=== PATIENT | male | born 1985 | race Caucasian/White ===

== ENCOUNTER 2016-08-27 03:21 | Emergency (ER) | payer SELFPAY ==
[~2016-08-27] VITALS: Ht 190.5 cm; Wt 109.2 kg
[2016-08-27 03:27] VITALS: TEMP 36.5; Ht 190.5 cm; Wt 109.2 kg
[2016-08-27] MEDS ORDERED: KETOROLAC TROMETHAMINE 30 MG/ML VIAL IV STA (03:36)
[2016-08-27] MEDS ORDERED: ONDANSETRON INJ 2 MG/ML 2 ML VIAL IV STA (03:36)
[2016-08-27] MEDS ORDERED: MoRPHine SULFATE 4 MG/ML 1 ML CARP\\VIAL IV ONE ×2 (03:45→06:15)
[2016-08-27] MEDS ORDERED: SODIUM CHLORIDE 0.9% 1000ML 1,000 ML IV ONE (03:45)
[2016-08-27 03:53] LABS: BASO % 0.2 %; BASO ABS # 0.04 K/uL (0-0.2); COMPLETE YES; EOS % 0.9 %; HEMATOCRIT 44.7 % (42-52); IG% 0.3 %; LYMPH % 12.4 %; LYMPH ABS # 2.26 K/uL (1.2-3.4); MEAN CORPUSCULAR HEMOGLOBIN 29.8 pg (25-34); MEAN CORPUSCULAR HGB CONC 34.2 g/dl (32-36); MONO % 3.2 %; PLATELET COUNT 286 K/uL (130-400); RED BLOOD COUNT 5.14 M/uL (4.7-6.1); WHITE BLOOD COUNT 18.24 K/uL (4.8-10.8)
[2016-08-27 04:11] LABS: BUN/CREATININE RATIO 7.5 (10-20); CALCIUM 8.9 mg/dl (8.5-10.1); CREATININE 1.4 mg/dl (0.60-1.40); POTASSIUM 3.8 mmol/L (3.5-5.1)
[2016-08-27 04:14] LABS: ALB/GLOB RATIO 1.1 (0.9-2)
[2016-08-27 05:06] LABS: URINE APPEARANCE TURBID (CLEAR); URINE COLOR ORANGE; URINE EPITHELIAL CELL AUTO >30 /lpf (0-5); URINE NITRITE POS (NEG); URINE SPECIFIC GRAVITY 1.028 (1.000-1.030); UROBILINOGEN NEG (NEG); ZZUR CULT IF INDIC CLEAN CATCH YES
[2016-08-27 05:46] LABS: MANUAL MICROSCOPIC REQUIRED? NO; REVIEW REQ? YES; URINE BILIRUBIN NEG (NEG)
[2016-08-27 05:48] LABS: URINE MUCUS PRESENT (NONE PRSENT)
[2016-08-27] MEDS ORDERED: SULF800T23 PO (06:08)
[2016-08-27] MEDS ORDERED: ONDA4TAB10 SL (06:08)
[2016-08-27] MEDS ORDERED: TAMS0.4C38 PO (06:08)
[2016-08-27] MEDS ORDERED: OXYC1TAB3 PO (06:08)
[2016-08-27] MEDS ORDERED: ONDANSETRON HOME PACK 4MG OD TAB PO ONE (06:15)
[2016-08-27] MEDS ORDERED: SEPTRA DS HOME PACK 1 EA VIAL PO ONE (06:15)
[2016-08-27] MEDS ORDERED: OXYCODONE IR HOME PACK PO ONE (06:15)
--- NOTE | 2016-08-27 06:20 | EMERGENCY ROOM VISIT NOTE ---
History First contact with patient: 03:30 Chief Complaint: PAIN (GENERALIZED) Stated Complaint: STOMACH,BACK, TESTICLE PAIN BLOOD IN URINE History of Present Illness The patient is a 31 year old male who presents to the Emergency Room with complaints of right-sided back pain and hematuria for the past several hours. The patient states that he was resting when his symptoms began. He tried to sleep, but has been unable to do so. He is complaining of some pain in his right testicle as well. He has not had fever or chills. He is nauseated without vomiting. The patient does not have a history of abdominal surgery or kidney stones. He rates his discomfort a dull, constant, 8/10. He attempted 400 mg of ibuprofen about 2 hours ago without any improvement of his discomfort. His pain does not improve or worsen with change in position. No injury or trauma. Review of Systems More than 10 systems were reviewed and otherwise negative with the exception of history of present illness. Past Medical/Surgical History No chronic medical disease Family History No pertinent family history Social History Smoking Status: Current Every Day Smoker Marital Status: single Occupation Status: employed Current/Historical Medications Scheduled Ondasetron Odt (Zofran Odt), 4 MG SL Q6H Oxycodone Immediate Rel Tab (Roxicodone Ir), 1-2 TAB PO Q6 Sulfa/Trimethoprim (Bactrim Ds 800MG/160MG), 1 TAB PO BID Tamsulosin Hcl (Flomax), 0.4 MG PO DAILY Allergies Coded Allergies: No Known Allergies (Unverified , 08/27/13) Physical Exam Vital Signs Date Time Temp Pulse Resp B/P (MAP) Pulse Ox O2 Delivery O2 Flow Rate FiO2 08/27/16 06:07 64 18 116/66 96 Room Air 08/27/16 04:59 71 18 128/73 98 Room Air 08/27/16 03:27 36.5 67 18 135/82 94 Room Air Physical Exam VITALS: Vitals are noted on the nurse's note and reviewed by myself. Vital signs stable. GENERAL: Well-developed, well-nourished, white male who is diaphoretic and appears in moderate to severe discomfort. He is pacing in his emergency department room. He is cooperative with the exam. HEAD: Normocephalic atraumatic. HEART: Regular rate and rhythm without murmurs gallops or rubs. LUNGS: Clear to auscultation bilaterally without wheezes, rales or rhonchi. No retractions or accessory muscle use. ABDOMEN: Positive normal bowel sounds x 4. Soft, nontender, without masses or organomegaly. No guarding or rebound tenderness.No CVA tenderness. MUSCULOSKELETAL: No muscle atrophy, erythema, or edema noted. Full range of motion without joint tenderness in all extremities. No palpable tenderness throughout the spine. Medical Decision & Procedures ER Provider Diagnostic Interpretation: Preliminary Findings Only See Final Report For Complete Findings CT ABDOMEN & PELVIS: 6 mm obstructing calculus at the right UVJ. Mild right hydroureteronephrosis. Small nonobstructing right renal calculus. Normal appendix. Laboratory Results 08/27/16 03:40 Red Blood Count 5.14, Mean Corpuscular Volume 87.0, Mean Corpuscular Hemoglobin 29.8, Mean Corpuscular Hemoglobin Concent 34.2, Mean Platelet Volume 10.0, Neutrophils (%) (Auto) 83.0, Lymphocytes (%) (Auto) 12.4, Monocytes (%) (Auto) 3.2, Eosinophils (%) (Auto) 0.9, Basophils (%) (Auto) 0.2, Neutrophils # (Auto) 15.14, Lymphocytes # (Auto) 2.26, Monocytes # (Auto) 0.59, Eosinophils # (Auto) 0.16, Basophils # (Auto) 0.04 08/27/16 03:40 Test 08/27/16 03:40 08/27/16 04:50 White Blood Count 18.24 K/uL (4.8-10.8) Red Blood Count 5.14 M/uL (4.7-6.1) Hemoglobin 15.3 g/dL (14.0-18.0) Hematocrit 44.7 % (42-52) Mean Corpuscular Volume 87.0 fL (80-100) Mean Corpuscular Hemoglobin 29.8 pg (25-34) Mean Corpuscular Hemoglobin Concent 34.2 g/dl (32-36) Platelet Count 286 K/uL (130-400) Mean Platelet Volume 10.0 fL (7.4-10.4) Neutrophils (%) (Auto) 83.0 % Lymphocytes (%) (Auto) 12.4 % Monocytes (%) (Auto) 3.2 % Eosinophils (%) (Auto) 0.9 % Basophils (%) (Auto) 0.2 % Neutrophils # (Auto) 15.14 K/uL (1.4-6.5) Lymphocytes # (Auto) 2.26 K/uL (1.2-3.4) Monocytes # (Auto) 0.59 K/uL (0.11-0.59) Eosinophils # (Auto) 0.16 K/uL (0-0.5) Basophils # (Auto) 0.04 K/uL (0-0.2) RDW Standard Deviation 41.3 fL (36.4-46.3) RDW Coefficient of Variation 12.8 % (11.5-14.5) Immature Granulocyte % (Auto) 0.3 % Immature Granulocyte # (Auto) 0.05 K/uL (0.00-0.02) Anion Gap 7.0 mmol/L (3-11) Est Creatinine Clear Calc Drug Dose 102.1 ml/min Estimated GFR () 77.0 Estimated GFR (Non- 66.5 BUN/Creatinine Ratio 7.5 (10-20) Calcium Level 8.9 mg/dl (8.5-10.1) Total Bilirubin 0.2 mg/dl (0.2-1) Aspartate Amino Transf (AST/SGOT) 17 U/L (15-37) Alanine Aminotransferase (ALT/SGPT) 44 U/L (12-78) Alkaline Phosphatase 73 U/L (45-117) Total Protein 7.7 gm/dl (6.4-8.2) Albumin 4.0 gm/dl (3.4-5.0) Globulin 3.7 gm/dl (2.5-4.0) Albumin/Globulin Ratio 1.1 (0.9-2) Lipase 75 U/L (73-393) Urine Color ORANGE Urine Appearance TURBID (CLEAR) Urine pH 5.0 (4.5-7.5) Urine Specific [place] 1.028 (1.000-1.030) Urine Protein 2+ (NEG) Urine Glucose (UA) NEG (NEG) Urine Ketones NEG (NEG) Urine Occult Blood 3+ (NEG) Urine Nitrite POS (NEG) Urine Bilirubin NEG (NEG) Urine Urobilinogen NEG (NEG) Urine Leukocyte Esterase SMALL (NEG) Urine WBC (Auto) 10-30 /hpf (0-5) Urine RBC (Auto) >30 /hpf (0-4) Urine Hyaline Casts (Auto) 5-10 /lpf (0-5) Urine Epithelial Cells (Auto) >30 /lpf (0-5) Urine Bacteria (Auto) 1+ (NEG) Urine Renal Epithelial Cells /lpf (0-5) Urine Mucus PRESENT (NONE PRSENT) Medications Administered Medications (Trade) Dose Ordered Sig/Jadiel Route Start Time Stop Time Status Last Admin Dose Admin Sodium Chloride 1,000 ml @ 999 mls/hr Q1H1M ONCE IV 08/27/16 03:45 08/27/16 04:45 DC 08/27/16 03:51 999 MLS/HR Morphine Sulfate (MoRPHine SULFATE INJ) 4 mg NOW ONCE IV 08/27/16 03:45 08/27/16 03:46 DC 08/27/16 03:51 4 MG Ketorolac Tromethamine (Toradol Inj) 30 mg NOW STAT IV 08/27/16 03:36 08/27/16 03:38 DC 08/27/16 03:51 30 MG Ondansetron HCl (Zofran Inj) 4 mg NOW STAT IV 08/27/16 03:36 08/27/16 03:38 DC 08/27/16 03:51 4 MG ED Course Physical exam and history were performed. Nursing notes and EMR were reviewed. Patient appears to have right sided back pain that is radiating into his right sided groin. The patient appears quite comfortable on exam and his presentation is concerning for a kidney stone. IV access was established and labs were obtained. The patient was hydrated and medicated as above. CT scan was performed. Urine was collected. The patient does have an elevated white blood cell count of 18,000. He does not have a significant anemia or gross electrolyte imbalance. His urine is concerning for hematuria and infection. The CT scan did show a 6 mm distal right UVJ stone, which clinically does correlate with the patient's symptoms. On reevaluation the patient felt significantly better after analgesics. He was able to rest quite comfortably and had essentially for relief of his pain. I discussed options of care at length with the patient, including admission to the hospital for IV antibiotics and pain control. The patient had a strong preference for discharge home. He states that he will contact urology in the morning, and this seems reasonable. He will be given prescriptions for oxycodone, Zofran, Flomax, and Bactrim. His first dose of Bactrim was provided here. The patient was thoroughly invited back to the ER with any new, worsening , or concerning symptoms. If he is not doing well at home he is to return for further care, and we can admit him at that time. The patient was pleased with this plan of voiced understanding. He was discharged home under the care of his mother and rated his discomfort a 1/10 at the time of departure. The chart was completed utilizing [employer] Voice Recognition Software. Grammatical errors, random word insertions, pronoun errors, and incomplete sentences are an occasional consequence of this system due to software limitations, ambient noise, and hardware issues. Any formal questions or concerns about the content, text, or information contained within the body of this dictation should be directly addressed to the provider for clarification. . Medical Decision Differential diagnosis: Etiologies such as renal colic, appendicitis, diverticulitis, mesenteric ischemia, aortic pathology, infections, inflammatory bowel disease, PUD, biliary pathology, UTI, as well as others were entertained. Impression Primary Impression: Right ureteral calculus Departure Information Dispostion Home / Self-Care Condition GOOD Prescriptions Tamsulosin Hcl (FLOMAX) 0.4 Mg Cap 0.4 MG PO DAILY for 7 Days, #7 CAP Prov: Mitch Crump PA-C 08/27/16 Sulfa/Trimethoprim (Bactrim Ds 800MG/160MG) Tab 1 TAB PO BID for 9 Days, #18 TAB Prov: Mitch Crump PA-C 08/27/16 Ondasetron Odt (ZOFRAN ODT) 4 Mg Tab 4 MG SL Q6H for Nausea, #12 TAB Prov: Mitch Crump PA-C 08/27/16 Oxycodone Immediate Rel Tab (ROXICODONE IR) 5 Mg Tab 1-2 TAB PO Q6 for Pain, #24 TAB Initial treatment Prov: Mitch Crump PA-C 08/27/16 Referrals Juan F Jacome MD, Urology Forms HOME CARE DOCUMENTATION FORM, Work Instructions, Additional Instructions: Patient was seen and evaluated today in the emergency department fo medical care. Return to work on 08/31/2016. Please excuse. IMPORTANT VISIT INFORMATION Patient Instructions Kidney Stones - [facility], [facility] Additional Instructions You were seen and evaluated today on an emergency basis only. This is not a substitute for, or an effort to provide, complete comprehensive medical care. It is not possible to recognize and treat all injuries or illnesses in a single emergency department visit. For this reason it is recommended that you followup with Urology, Dr. Jacome's office, by telephone this morning to arrange a follow-up visit. Let them know you're seen in the ER to help facilitate care. For baseline pain relief you may alternate ibuprofen and acetaminophen every 4 hours for pain control. Take 600 mg ibuprofen (Advil) and then 4 hours later take 1000 mg acetaminophen (Tylenol). Do not take more than 3000 mg acetaminophen in a single day. Oxycodone (OxyIR) 5mg: Take ONE or TWO pills every SIX hours for breakthrough pain. Avoid alcohol, operating machinery or dangerous equipment, working on ladders or roofs, DRIVING, or situations where being under the influence may be dangerous. It is recommended to use an [id number] stool softener such as Colace, 100mg twice daily while taking this medication to avoid constipation. Zofran 1 tablet every 6 hrs as needed for nausea. Trimethoprim-Sulfamethoxazole(Bactrim DS): Take one pill twice daily for 10 total days for your infection. All antibiotics can cause diarrhea. If this occurs and you feel worse or it does not resolve in 1-2 days follow up with your doctor or return to the Emergency Department as this could be signs of serious underlying problems. Any medication can cause an allergic reaction, stop the pills immediately and return to the ER for rash, hives, breathing difficulties, or swelling. Take Flomax once daily You are welcome to return to the emergency department anytime with new, worsening, or concerning symptoms. Work Instructions Additional Work Instructions: Patient was seen and evaluated today in the emergency department for medical care. Return to work on 08/31/2016. Please excuse.
[2016-08-27 06:46] VITALS: BP 120/70; PULSE 95; O2SAT 96
--- NOTE | 2016-08-27 07:29 | DIAGNOSTIC IMAGING REPORT ---
ABDOMEN AND PELVIS CT WITHOUT CONTRAST CT DOSE: 807.58 mGy.cm HISTORY: Back pain radiating to groin. Hematuria. TECHNIQUE: Multiaxial CT images of the abdomen and pelvis were performed without contrast. COMPARISON STUDY: None. FINDINGS: There is a punctate nonobstructing stone within the lower pole the right kidney. Mild right hydronephrosis secondary to an obstructing 5 mm stone at the right ureterovesical junction. Bladder is underdistended. No left renal calculi or left-sided hydronephrosis. The liver, spleen, adrenal glands, pancreas, and gallbladder are unremarkable. No retroperitoneal lymphadenopathy. Tiny fat-containing umbilical hernia. No bowel wall thickening or obstruction. Normal appendix. No fractures within the visualized osseous structures. IMPRESSION: 1. A 5 mm stone within the right ureterovesical junction resulting in mild right hydronephrosis. 2. Right-sided nephrolithiasis. Electronically signed by: Romeo Manuel M.D. 08/27/2016 7:27 AM Dictated Date/Time: 08/27/2016 7:23 AM
== END 2016-08-27 06:48 | disposition home or self-care (01) ==
LOC: C.EDB 03:23 → C.EDA 06:48
DX: N20.1 Calculus of ureter (principal); F17.200 Nicotine dependence, unspecified, uncomplicated